=== PATIENT | female | born 1945 | race Caucasian/White ===

== ENCOUNTER 2023-09-26 23:12 | Inpatient (IN) | payer BC ==
[~2023-09-26] VITALS: Ht 172.7 cm; Wt 89.8 kg
[2023-09-26] MEDS: ACETAMINOPHEN 650 MG/SUPP.RECT RC ONE (23:30)
[2023-09-26] MEDS: IV NS 0.9% 1,000 ML BAG IV ONE (23:30)
[2023-09-26] MEDS ORDERED: ACETAMINOPHEN 650 MG/SUPP.RECT RC ONE (23:40)
[2023-09-26 23:48] LABS: BASOPHILS % (AUTO) 0.3 % (0.0-2.0); EOSINOPHILS # (AUTO) 0.1 K/uL (0.0-0.7); EOSINOPHILS % (AUTO) 0.5 % (0.0-6.0); HEMATOCRIT 34 % (33-45); HEMOGLOBIN 10.8 g/dL (11.5-14.8); LYMPHOCYTES # (AUTO) 0.4 K/uL (0.8-4.8); LYMPHOCYTES % (AUTO) 3.3 % (20.0-44.0); MEAN CORPUSCULAR HEMOGLOBIN 27 PG (26.0-33.0); MEAN CORPUSCULAR HGB CONC 32 g/dl (31.0-36.0); MEAN CORPUSCULAR VOLUME 84 fL (82-100); MONOCYTES # (AUTO) 0.8 K/uL (0.1-1.30); MONOCYTES % (AUTO) 7.4 % (2.0-12.0); NEUTROPHILS # (AUTO) 10.1 K/uL (1.8-8.9); NEUTROPHILS % (AUTO) 88.5 % (43.0-81.0); PLATELET COUNT (AUTO) 255 K/uL (150-450); RED BLOOD CELL COUNT(AUTO) 3.99 MIL/uL (4.0-5.2); RED CELL DISTRIBUTION WIDTH 16.3 % (11.5-15.0); WHITE BLOOD COUNT (AUTO) 11.5 K/uL (4.3-11.0)
[2023-09-27 00:03] LABS: PARTIAL THROMBOPLASTIN TIME 26.8 SEC (24.3-34.3); PROTHROMBIN TIME 10.6 SECS (9.2-11.1)
[2023-09-27 00:20] LABS: LACTIC ACID 2.4 mmol/L (0.4-2.0)
[2023-09-27 00:29] LABS: ALANINE AMINOTRANSFERASE 34 U/L (12-78); ALKALINE PHOSPHATASE 77 U/L (46-116); ASPARTATE AMINOTRANSFERASE 41 U/L (15-37); BILIRUBIN,DIRECT 0.1 mg/dL (0.0-0.2); BILIRUBIN,TOTAL 0.4 mg/dL (0.2-1.0); CALCIUM, SERUM 9.1 mg/dL (8.5-10.1); CARBON DIOXIDE 26 mmol/L (21-32); CHLORIDE 106 mmol/L (98-107); CREATININE 1.3 mg/dL (0.6-1.3); GLUCOSE 105 mg/dL (74-106); POTASSIUM 4.4 mmol/L (3.5-5.1); SODIUM SERUM 143 mmol/L (136-145); UREA NITROGEN, BLOOD 34 mg/dL (7-18)
[2023-09-27 00:43] LABS: APPEARANCE,URINE SLIGHTLY CLOUDY (CLEAR); BILIRUBIN,URINE NEGATIVE (NEGATIVE); BLOOD, URINE 3+ Ery/uL (NEGATIVE); COLOR,URINE YELLOW (YELLOW); KETONES,URINE NEGATIVE (NEGATIVE); LEUKOCYTE ESTERASE ,URINE 2+ (NEGATIVE); NITRITE, URINE NEGATIVE (NEGATIVE); PH,URINE 8.5 (5.0-8.0); PROTEIN,URINE NEGATIVE (NEGATIVE); UGLUCOSE NEGATIVE (NEGATIVE); UROBILINOGEN,URINE 0.2 EU/dL (0.2)
[2023-09-27 00:54] LABS: ADD URINE CULTURE YES; BACTERIA,URINE 1+ /HPF (None Seen); RBC,URINE 21-50 /HPF (0-2); SQUAMOUS EPITHELIAL CELL,UR 21-50 /HPF (None Seen)
[2023-09-27] MEDS: CEFTRIAXONE 1GM BAG (ER ONLY) 1 GM/50 ML PIGGYBACK IV ONE (01:00)
[2023-09-27] MEDS: AZITHROMYCIN 500 MG in IV D5W 250 ML IV ONE (01:00)
[2023-09-27] MEDS ORDERED: ONDANSETRON HCL/PF 4 MG/2 ML VIAL IVP PRN (01:00)
[2023-09-27] MEDS ORDERED: ALBUTEROL FS 2.5 MG/0.5 ML VIAL.NEB NEB PRN (01:00)
[2023-09-27] MEDS ORDERED: hydrALAZINE HCL IV 20 MG VIAL IV PRN (01:00)
[2023-09-27] MEDS ORDERED: ACETAMINOPHEN 325 MG TABLET PO PRN (01:00)
[2023-09-27] MEDS ORDERED: MORPHINE SULFATE INJ 2 MG/ML DISP.SYRIN IV PRN (01:00)
[2023-09-27] MEDS ORDERED: CEFTRIAXONE 1GM BAG (ER ONLY) 50 ML IV ONE (01:14)
[2023-09-27] MEDS ORDERED: AZITHROMYCIN 500 MG VIAL ONE (01:19)
[2023-09-27] MEDS: IV NS 0.9% 500 ML BAG IV ONE (01:56)
[2023-09-27] MEDS ORDERED: REMDESIVIR (CHARGED) 200 MG, *LOADING DOSE 1 EA in IV NS 0.9% 210 ML IV STA (02:28)
[2023-09-27 04:15] VITALS: BP 93/54; TEMP 97.8; O2SAT 96
[2023-09-27] MEDS: dexaMETHasone SOD PHOSPHATE 10 MG/ML VIAL IV STA (04:28)
[2023-09-27] MEDS ORDERED: IPRATROPIUM/ALBUTEROL INHALER IH SCH (06:00)
[2023-09-27] MEDS: IPRATROPIUM NEB FS 0.5 MG/2.5 ML AMPUL.NEB NEB SCH (07:35)
[2023-09-27] MEDS: ALBUTEROL FS 2.5 MG/3 ML VIAL.NEB NEB SCH (07:35)
[2023-09-27 08:00] VITALS: BP 95/60; TEMP 97.6; O2SAT 96
[2023-09-27] MEDS ORDERED: NAPR-1126 PO (08:51)
[2023-09-27] MEDS ORDERED: PANT40TA2 PO (08:51)
[2023-09-27] MEDS ORDERED: SENN8.6T19 PO (08:51)
[2023-09-27] MEDS ORDERED: RISP0.5T65 PO ×2 (08:51)
[2023-09-27] MEDS ORDERED: ACET-868 PO (08:51)
[2023-09-27] MEDS ORDERED: ALPR0.25 PO ×2 (08:51)
[2023-09-27] MEDS ORDERED: CALC-1116 PO (08:51)
[2023-09-27] MEDS ORDERED: [UNRECOGNIZED DRUG - CODE] TD (08:51)
[2023-09-27] MEDS ORDERED: GABA300C PO (08:51)
[2023-09-27] MEDS ORDERED: CLOZ100T32 PO (08:51)
[2023-09-27] MEDS ORDERED: ATOR20TA PO (08:51)
[2023-09-27] MEDS ORDERED: CHOL100043 PO (08:51)
[2023-09-27] MEDS ORDERED: MULT1TAB70 PO (08:51)
[2023-09-27] MEDS: HEPARIN SODIUM, PORCINE 5000 UNITS/1 ML VIAL SQ SCH (09:45)
[2023-09-27] MEDS ORDERED: NAPROXEN SODIUM 220 MG PO PRN (11:30)
[2023-09-27 12:00] VITALS: BP 107/95; TEMP 97.5; O2SAT 96
[2023-09-27] MEDS ORDERED: REMDESIVIR (CHARGED) 200 MG, *LOADING DOSE 1 EA in IV NS 0.9% 210 ML IV ONE (12:00)
[2023-09-27] MEDS ORDERED: NAPROXEN 500 MG TABLET PO PRN (12:30)
[2023-09-27] MEDS: MULTIVITAMINS,THERAGRAN 1 UDTAB TABLET PO SCH (12:55)
[2023-09-27] MEDS: ALPRAZOLAM 0.25 MG TABLET PO PRN (13:03)
[2023-09-27] MEDS: REMDESIVIR (CHARGED) 200 MG, *LOADING DOSE 1 EA in IV NS 0.9% 210 ML IV ONE (14:26)
[2023-09-27 16:00] VITALS: BP 111/87; TEMP 97.6; O2SAT 97
[2023-09-27] MEDS: ALPRAZOLAM 0.25 MG TABLET PO SCH (16:19)
[2023-09-27] MEDS: CALCIUM CARB 600MG /VIT D 1 EACH TABLET PO SCH (16:19)
[2023-09-27] MEDS: GABAPENTIN 300 MG CAPSULE PO SCH (16:19)
[2023-09-27 20:00] VITALS: BP 112/61; TEMP 97.7; O2SAT 96
[2023-09-27] MEDS: risperiDONE 0.25 MG TABLET PO SCH (21:31)
[2023-09-27] MEDS: ATORVASTATIN 10 MG TABLET PO SCH (21:31)
[2023-09-27] MEDS: CLOZAPINE 100 MG TABLET PO SCH (21:31)
[2023-09-27] MEDS: CEFTRIAXONE 1 G in IV D5W 50 ML IV SCH (21:34)
[2023-09-28] VITALS (7 sets, daily range): BP systolic 102–117; BP diastolic 60–69; TEMP 97.3–97.7; O2SAT 93–97
[2023-09-28 07:54] LABS: INR 0.99 (0.91-1.10); PARTIAL THROMBOPLASTIN TIME 28.9 SEC (24.3-34.3); PROTHROMBIN TIME 10.5 SECS (9.2-11.1)
[2023-09-28 07:57] LABS: BASOPHILS % (AUTO) 0.1 % (0.0-2.0); HEMATOCRIT 37 % (33-45); HEMOGLOBIN 11.7 g/dL (11.5-14.8); LYMPHOCYTES # (AUTO) 0.8 K/uL (0.8-4.8); LYMPHOCYTES % (AUTO) 8.7 % (20.0-44.0); MEAN CORPUSCULAR HEMOGLOBIN 27 PG (26.0-33.0); MEAN CORPUSCULAR HGB CONC 32 g/dl (31.0-36.0); MEAN CORPUSCULAR VOLUME 85 fL (82-100); MONOCYTES # (AUTO) 0.8 K/uL (0.1-1.30); MONOCYTES % (AUTO) 8.3 % (2.0-12.0); NEUTROPHILS # (AUTO) 7.8 K/uL (1.8-8.9); NEUTROPHILS % (AUTO) 82.9 % (43.0-81.0); PLATELET COUNT (AUTO) 237 K/uL (150-450); RED BLOOD CELL COUNT(AUTO) 4.33 MIL/uL (4.0-5.2); RED CELL DISTRIBUTION WIDTH 16.9 % (11.5-15.0); WHITE BLOOD COUNT (AUTO) 9.4 K/uL (4.3-11.0)
[2023-09-28 08:20] LABS: ALBUMIN 2.7 g/dL (3.4-5.0); BILIRUBIN,DIRECT 0.1 mg/dL (0.0-0.2); BILIRUBIN,TOTAL 0.4 mg/dL (0.2-1.0); CALCIUM, SERUM 9.1 mg/dL (8.5-10.1); CARBON DIOXIDE 23 mmol/L (21-32); CHLORIDE 110 mmol/L (98-107); CREATININE 0.9 mg/dL (0.6-1.3); GLUCOSE 95 mg/dL (74-106); POTASSIUM 4.2 mmol/L (3.5-5.1); SODIUM SERUM 143 mmol/L (136-145); TOTAL PROTEIN, SERUM 6.9 g/dL (6.4-8.2); UREA NITROGEN, BLOOD 26 mg/dL (7-18)
[2023-09-28 08:21] LABS: ALANINE AMINOTRANSFERASE 38 U/L (12-78); ALBUMIN 2.6 g/dL (3.4-5.0); ALKALINE PHOSPHATASE 72 U/L (46-116); ASPARTATE AMINOTRANSFERASE 58 U/L (15-37); BILIRUBIN,TOTAL 0.4 mg/dL (0.2-1.0); MAGNESIUM 2.5 mg/dL (1.8-2.4); PHOSPHORUS 3.6 mg/dL (2.5-4.9); TOTAL PROTEIN, SERUM 6.8 g/dL (6.4-8.2)
[2023-09-28 08:35] LABS: LACTIC ACID 1.9 mmol/L (0.4-2.0)
[2023-09-28] MEDS: PANTOPRAZOLE 40 MG TABLET.DR PO SCH (09:30)
[2023-09-28] MEDS: dexaMETHasone SOD PHOSPHATE 10 MG/ML VIAL IV SCH (09:31)
[2023-09-28] MEDS: CHOLECALCIFEROL 1,000 UNIT TABLET (VIT D3) PO SCH (09:31)
[2023-09-28] MEDS: risperiDONE 0.25 MG TABLET PO SCH (09:31)
[2023-09-28] MEDS: EMSAM TP SCH (09:48)
[2023-09-28] MEDS ORDERED: REMDESIVIR (CHARGED) 100 MG in IV NS 0.9% 80 ML IV SCH (12:00)
[2023-09-28] MEDS: REMDESIVIR (CHARGED) 100 MG in IV NS 0.9% 230 ML IV SCH (12:47)
[2023-09-28] MEDS: SENNOSIDES 8.6 MG TABLET PO PRN (18:15)
[2023-09-29] VITALS (7 sets, daily range): BP systolic 112–129; BP diastolic 71–90; TEMP 97.2–98; O2SAT 93–98
[2023-09-29] MEDS: ACETAMINOPHEN 325 MG TABLET PO PRN (05:28)
[2023-09-29 08:10] LABS: BASOPHILS % (AUTO) 0.1 % (0.0-2.0); HEMATOCRIT 38 % (33-45); HEMOGLOBIN 12.1 g/dL (11.5-14.8); LYMPHOCYTES # (AUTO) 1.3 K/uL (0.8-4.8); LYMPHOCYTES % (AUTO) 10.9 % (20.0-44.0); MEAN CORPUSCULAR HEMOGLOBIN 27 PG (26.0-33.0); MEAN CORPUSCULAR HGB CONC 32 g/dl (31.0-36.0); MEAN CORPUSCULAR VOLUME 84 fL (82-100); MONOCYTES # (AUTO) 0.9 K/uL (0.1-1.30); MONOCYTES % (AUTO) 7.4 % (2.0-12.0); NEUTROPHILS # (AUTO) 9.4 K/uL (1.8-8.9); NEUTROPHILS % (AUTO) 81.6 % (43.0-81.0); PLATELET COUNT (AUTO) 259 K/uL (150-450); RED BLOOD CELL COUNT(AUTO) 4.53 MIL/uL (4.0-5.2); RED CELL DISTRIBUTION WIDTH 16.6 % (11.5-15.0); WHITE BLOOD COUNT (AUTO) 11.6 K/uL (4.3-11.0)
[2023-09-29 08:18] LABS: INR 0.97 (0.91-1.10); PARTIAL THROMBOPLASTIN TIME 34.8 SEC (24.3-34.3); PROTHROMBIN TIME 10.3 SECS (9.2-11.1)
[2023-09-29] MEDS: SELEGILINE 6 MG/24 HR TP SCH (09:43)
[2023-09-29 10:33] LABS: ALANINE AMINOTRANSFERASE 36 U/L (12-78); ALBUMIN 2.7 g/dL (3.4-5.0); ALKALINE PHOSPHATASE 75 U/L (46-116); ASPARTATE AMINOTRANSFERASE 50 U/L (15-37); BILIRUBIN,DIRECT 0.1 mg/dL (0.0-0.2); BILIRUBIN,TOTAL 0.3 mg/dL (0.2-1.0); CALCIUM, SERUM 9.2 mg/dL (8.5-10.1); CARBON DIOXIDE 26 mmol/L (21-32); CHLORIDE 108 mmol/L (98-107); CREATININE 0.9 mg/dL (0.6-1.3); GLUCOSE 93 mg/dL (74-106); PHOSPHORUS 3.6 mg/dL (2.5-4.9); POTASSIUM 4.1 mmol/L (3.5-5.1); SODIUM SERUM 143 mmol/L (136-145); UREA NITROGEN, BLOOD 26 mg/dL (7-18)
[2023-09-29] MEDS: MAGNESIUM HYDROXIDE 30 ML UDC PO PRN (12:04)
[2023-09-29] MEDS: REMDESIVIR (CHARGED) 100 MG in IV NS 0.9% 80 ML IV SCH (12:04)
[2023-09-29] MEDS: PHENAZOPYRIDINE HCL 200 MG TABLET PO PRN (16:55)
[2023-09-30] VITALS: BP 122/74; TEMP 97.2; O2SAT 99
[2023-09-30 04:00] VITALS: BP 115/72; TEMP 97.7; O2SAT 99
[2023-09-30 07:44] LABS: BASOPHILS % (AUTO) 0.1 % (0.0-2.0); HEMATOCRIT 38 % (33-45); HEMOGLOBIN 12.4 g/dL (11.5-14.8); LYMPHOCYTES # (AUTO) 1.4 K/uL (0.8-4.8); LYMPHOCYTES % (AUTO) 10.3 % (20.0-44.0); MEAN CORPUSCULAR HEMOGLOBIN 27 PG (26.0-33.0); MEAN CORPUSCULAR HGB CONC 33 g/dl (31.0-36.0); MEAN CORPUSCULAR VOLUME 83 fL (82-100); MONOCYTES # (AUTO) 1.3 K/uL (0.1-1.30); MONOCYTES % (AUTO) 9.1 % (2.0-12.0); NEUTROPHILS # (AUTO) 11.1 K/uL (1.8-8.9); NEUTROPHILS % (AUTO) 80.5 % (43.0-81.0); PLATELET COUNT (AUTO) 274 K/uL (150-450); RED BLOOD CELL COUNT(AUTO) 4.57 MIL/uL (4.0-5.2); RED CELL DISTRIBUTION WIDTH 15.8 % (11.5-15.0); WHITE BLOOD COUNT (AUTO) 13.8 K/uL (4.3-11.0)
[2023-09-30 07:51] LABS: INR 0.99 (0.91-1.10); PARTIAL THROMBOPLASTIN TIME 36.1 SEC (24.3-34.3); PROTHROMBIN TIME 10.5 SECS (9.2-11.1)
[2023-09-30 08:00] VITALS: BP 117/89; TEMP 97.5; O2SAT 97
[2023-09-30 08:20] LABS: ALANINE AMINOTRANSFERASE 31 U/L (12-78); ALBUMIN 2.6 g/dL (3.4-5.0); ALKALINE PHOSPHATASE 73 U/L (46-116); ASPARTATE AMINOTRANSFERASE 33 U/L (15-37); BILIRUBIN,DIRECT 0.1 mg/dL (0.0-0.2); BILIRUBIN,TOTAL 0.3 mg/dL (0.2-1.0); CALCIUM, SERUM 9.6 mg/dL (8.5-10.1); CARBON DIOXIDE 26 mmol/L (21-32); CHLORIDE 107 mmol/L (98-107); GLUCOSE 90 mg/dL (74-106); POTASSIUM 4.4 mmol/L (3.5-5.1); SODIUM SERUM 144 mmol/L (136-145); TOTAL PROTEIN, SERUM 6.9 g/dL (6.4-8.2); UREA NITROGEN, BLOOD 34 mg/dL (7-18)
[2023-09-30] MEDS ORDERED: IPRATROPIUM BROMIDE 14 GM INHALER (or 12.9 GM) IH PRN (09:00)
[2023-09-30 11:01] LABS: ABG OXYGEN SATURATION 87.9 % (92.0-98.5); ABG PCO2 36.1 mmHg (35.0-45.0); ABG PH 7.452 (7.350-7.450); ABG PO2 54.3 mmHg (75.0-100.0); ABG TOTAL HEMOGLOBIN 13.3 G/dL (12.0-16.0); AaDO2 52.2 mmHg; COHb 0.6 % (0.5-1.5); MetHb 0.3 % (0.0-1.5); O2Hb 87.1 % (94.0-97.0); SITE, ABG Right Radial; VENT MODE, BG ROOM AIR
[2023-09-30 12:00] VITALS: BP 108/71; TEMP 97.5; O2SAT 97
[2023-09-30 16:00] VITALS: BP 101/69; TEMP 96.9; O2SAT 98
[2023-09-30 20:00] VITALS: BP 116/72; TEMP 97.5; O2SAT 98
[2023-10-01] VITALS (7 sets, daily range): BP systolic 112–150; BP diastolic 63–115; TEMP 96.8–97.8; O2SAT 94–98
[2023-10-01 07:49] LABS: BASOPHILS % (AUTO) 0.1 % (0.0-2.0); HEMATOCRIT 39 % (33-45); HEMOGLOBIN 12.2 g/dL (11.5-14.8); LYMPHOCYTES # (AUTO) 1.6 K/uL (0.8-4.8); LYMPHOCYTES % (AUTO) 13.4 % (20.0-44.0); MEAN CORPUSCULAR HEMOGLOBIN 27 PG (26.0-33.0); MEAN CORPUSCULAR HGB CONC 32 g/dl (31.0-36.0); MEAN CORPUSCULAR VOLUME 85 fL (82-100); MONOCYTES # (AUTO) 1.2 K/uL (0.1-1.30); MONOCYTES % (AUTO) 9.7 % (2.0-12.0); NEUTROPHILS # (AUTO) 9.3 K/uL (1.8-8.9); NEUTROPHILS % (AUTO) 76.8 % (43.0-81.0); PLATELET COUNT (AUTO) 246 K/uL (150-450); RED BLOOD CELL COUNT(AUTO) 4.55 MIL/uL (4.0-5.2); RED CELL DISTRIBUTION WIDTH 16.4 % (11.5-15.0); WHITE BLOOD COUNT (AUTO) 12.1 K/uL (4.3-11.0)
[2023-10-01 08:07] LABS: ALANINE AMINOTRANSFERASE 23 U/L (12-78); ALBUMIN 2.3 g/dL (3.4-5.0); ALKALINE PHOSPHATASE 69 U/L (46-116); ASPARTATE AMINOTRANSFERASE 23 U/L (15-37); BILIRUBIN,DIRECT 0.1 mg/dL (0.0-0.2); BILIRUBIN,TOTAL 0.3 mg/dL (0.2-1.0); CALCIUM, SERUM 9.2 mg/dL (8.5-10.1); CARBON DIOXIDE 24 mmol/L (21-32); CHLORIDE 110 mmol/L (98-107); CREATININE 0.9 mg/dL (0.6-1.3); GLUCOSE 104 mg/dL (74-106); POTASSIUM 4.3 mmol/L (3.5-5.1); SODIUM SERUM 144 mmol/L (136-145); TOTAL PROTEIN, SERUM 6.5 g/dL (6.4-8.2); UREA NITROGEN, BLOOD 39 mg/dL (7-18)
[2023-10-01 08:16] LABS: INR 0.99 (0.91-1.10); PARTIAL THROMBOPLASTIN TIME 26.6 SEC (24.3-34.3); PROTHROMBIN TIME 10.5 SECS (9.2-11.1)
[2023-10-02] VITALS: BP 130/79; TEMP 97; O2SAT 98
[2023-10-02 04:00] VITALS: BP 137/89; TEMP 97.3; O2SAT 94
[2023-10-02 07:12] LABS: BASOPHILS % (AUTO) 0.1 % (0.0-2.0); EOSINOPHILS % (AUTO) 0.1 % (0.0-6.0); HEMATOCRIT 41 % (33-45); HEMOGLOBIN 13.4 g/dL (11.5-14.8); LYMPHOCYTES # (AUTO) 1.9 K/uL (0.8-4.8); LYMPHOCYTES % (AUTO) 14.1 % (20.0-44.0); MEAN CORPUSCULAR HEMOGLOBIN 27 PG (26.0-33.0); MEAN CORPUSCULAR HGB CONC 32 g/dl (31.0-36.0); MEAN CORPUSCULAR VOLUME 84 fL (82-100); MONOCYTES # (AUTO) 1.1 K/uL (0.1-1.30); MONOCYTES % (AUTO) 8.4 % (2.0-12.0); NEUTROPHILS # (AUTO) 10.5 K/uL (1.8-8.9); NEUTROPHILS % (AUTO) 77.3 % (43.0-81.0); PLATELET COUNT (AUTO) 252 K/uL (150-450); RED CELL DISTRIBUTION WIDTH 16.7 % (11.5-15.0); WHITE BLOOD COUNT (AUTO) 13.6 K/uL (4.3-11.0)
[2023-10-02 07:18] LABS: INR 1.01 (0.91-1.10); PARTIAL THROMBOPLASTIN TIME 30.7 SEC (24.3-34.3); PROTHROMBIN TIME 10.7 SECS (9.2-11.1)
[2023-10-02 07:36] LABS: ALANINE AMINOTRANSFERASE 29 U/L (12-78); ALBUMIN 2.5 g/dL (3.4-5.0); ALKALINE PHOSPHATASE 73 U/L (46-116); ASPARTATE AMINOTRANSFERASE 20 U/L (15-37); BILIRUBIN,DIRECT 0.1 mg/dL (0.0-0.2); BILIRUBIN,TOTAL 0.3 mg/dL (0.2-1.0); CALCIUM, SERUM 9.7 mg/dL (8.5-10.1); CARBON DIOXIDE 24 mmol/L (21-32); CHLORIDE 108 mmol/L (98-107); GLUCOSE 100 mg/dL (74-106); POTASSIUM 4.3 mmol/L (3.5-5.1); SODIUM SERUM 145 mmol/L (136-145); TOTAL PROTEIN, SERUM 6.9 g/dL (6.4-8.2); UREA NITROGEN, BLOOD 34 mg/dL (7-18)
[2023-10-02 08:00] VITALS: BP 126/83; TEMP 98.2; O2SAT 97
[2023-10-02 12:00] VITALS: BP 123/70; TEMP 97.7; O2SAT 98
[2023-10-02 14:37] VITALS: O2SAT 93
[2023-10-02 16:00] VITALS: BP 109/89; TEMP 96.7; O2SAT 92
== END 2023-10-02 18:19 | disposition home health service (06) | DRG 177 ==
LOC: ER 23:23 → TELE 09-27 01:25 → TELE1 09-27 03:11
PROVIDERS: ADMIT Student in an Organized Health Care Education/Training Program; ATTEND Nurse Practitioner Acute Care
PROC: XW033E5 Introduction of Remdesivir Anti-infective into Peripheral Vein, Percutaneous Approach, New Technology Group 5 (ICD-10-PCS; principal; 2023-09-27)
DX: U07.1 COVID-19 (principal); J12.82 Pneumonia due to coronavirus disease 2019; J15.9 Unspecified bacterial pneumonia; J96.01 Acute respiratory failure with hypoxia; N39.0 Urinary tract infection, site not specified; E44.0 Moderate protein-calorie malnutrition; E87.20 Acidosis, unspecified; D64.9 Anemia, unspecified; E66.9 Obesity, unspecified; E78.5 Hyperlipidemia, unspecified; E86.0 Dehydration; F32.A Depression, unspecified; Z78.9 Other specified health status; G47.33 Obstructive sleep apnea (adult) (pediatric); Z68.30 Body mass index [BMI] 30.0-30.9, adult; R74.01 Elevation of levels of liver transaminase levels; G20.A1 Parkinson's disease without dyskinesia, without mention of fluctuations; B96.89 Other specified bacterial agents as the cause of diseases classified elsewhere
CPT/HCPCS: 36415; 36600; 70450-TC; 71045-TC; 71250-TC; 80048-TC; 80053-TC; 80076-TC; 81001; 82728-TC; 82803-TC; 82962-TC; 83605-TC; 83735-TC; 83880; 84100-TC; 84484-TC; 85025-TC; 85378-TC; 85610-TC; 85730-TC; 86140-TC; 87040-TC; 87081-TC; 87086-TC; 93307-TC; 93970-TC; 94761-TC; 94762-TC; 94799-TC; 97110-TC; 97530-TC; 97535-TC; A4216; A4223; G0378; J0456; J0696; J1100; J1644; J2048; J3490; J7030; J7040; J7050; J7060

== ENCOUNTER 2023-10-03 09:45 | Inpatient (IN) | payer BC ==
[~2023-10-03] VITALS: Ht 172.7 cm; Wt 89.8 kg
[~2023-10-03 09:45] MED LIST: ACET-868 PO; ALPR0.25 PO; ATOR20TA PO; CALC-1116 PO; CHOL100043 PO; CLOZ100T32 PO; GABA300C PO; MULT1TAB70 PO; NAPR-1126 PO; PANT40TA2 PO; RISP0.5T65 PO; SENN8.6T19 PO; [UNRECOGNIZED DRUG - CODE] TD
[2023-10-03] MEDS: IV NS 0.9% 500 ML BAG IV ONE (10:15)
[2023-10-03 10:22] LABS: BASOPHILS % (AUTO) 0.2 % (0.0-2.0); EOSINOPHILS % (AUTO) 0.1 % (0.0-6.0); HEMATOCRIT 41 % (33-45); HEMOGLOBIN 13.1 g/dL (11.5-14.8); LYMPHOCYTES # (AUTO) 2.8 K/uL (0.8-4.8); LYMPHOCYTES % (AUTO) 16.3 % (20.0-44.0); MEAN CORPUSCULAR HEMOGLOBIN 27 PG (26.0-33.0); MEAN CORPUSCULAR HGB CONC 32 g/dl (31.0-36.0); MEAN CORPUSCULAR VOLUME 84 fL (82-100); MONOCYTES # (AUTO) 1.8 K/uL (0.1-1.30); MONOCYTES % (AUTO) 10.2 % (2.0-12.0); NEUTROPHILS # (AUTO) 12.7 K/uL (1.8-8.9); NEUTROPHILS % (AUTO) 73.2 % (43.0-81.0); PLATELET COUNT (AUTO) 284 K/uL (150-450); RED CELL DISTRIBUTION WIDTH 16.2 % (11.5-15.0); WHITE BLOOD COUNT (AUTO) 17.4 K/uL (4.3-11.0)
[2023-10-03 10:29] LABS: CALCIUM, SERUM 9.4 mg/dL (8.5-10.1); CARBON DIOXIDE 25 mmol/L (21-32); CHLORIDE 113 mmol/L (98-107); CREATININE 1.1 mg/dL (0.6-1.3); GLUCOSE 74 mg/dL (74-106); POTASSIUM 4.5 mmol/L (3.5-5.1); SODIUM SERUM 148 mmol/L (136-145); UREA NITROGEN, BLOOD 42 mg/dL (7-18)
[2023-10-03 10:35] LABS: LACTIC ACID 1.9 mmol/L (0.4-2.0)
[2023-10-03 10:42] LABS: ALANINE AMINOTRANSFERASE 29 U/L (12-78); ALBUMIN 2.6 g/dL (3.4-5.0); ALKALINE PHOSPHATASE 69 U/L (46-116); ASPARTATE AMINOTRANSFERASE 26 U/L (15-37); BILIRUBIN,DIRECT 0.1 mg/dL (0.0-0.2); BILIRUBIN,TOTAL 0.4 mg/dL (0.2-1.0)
[2023-10-03 10:57] LABS: INR 1.01 (0.91-1.10); PARTIAL THROMBOPLASTIN TIME 27.3 SEC (24.3-34.3); PROTHROMBIN TIME 10.7 SECS (9.2-11.1)
[2023-10-03] MEDS ORDERED: CEFEPIME 1 GM VIAL ONE (10:59)
[2023-10-03] MEDS: CEFEPIME 1 GM in IV D5W 50 ML IV ONE (11:00)
[2023-10-03] MEDS ORDERED: VANCOMYCIN 1 GM /D5W 250 ML PB IV ONE (11:08)
[2023-10-03] MEDS: VANCOMYCIN 1 GM in IV D5W 250 ML IV ONE ×2 (12:00→14:36)
[2023-10-03] MEDS ORDERED: ONDANSETRON HCL/PF 4 MG/2 ML VIAL IVP PRN (12:30)
[2023-10-03] MEDS ORDERED: ACETAMINOPHEN 325 MG TABLET PO PRN (12:30)
[2023-10-03] MEDS ORDERED: SENNOSIDES 8.6 MG TABLET PO PRN (13:00)
[2023-10-03] MEDS ORDERED: NAPROXEN 250 MG TABLET PO PRN (13:00)
[2023-10-03] MEDS ORDERED: ALPRAZOLAM 0.25 MG TABLET PO PRN (13:00)
[2023-10-03] MEDS: risperiDONE 0.25 MG TABLET PO SCH (14:37)
[2023-10-03 16:00] VITALS: BP 133/79; TEMP 97.7; O2SAT 97
[2023-10-03] MEDS: GABAPENTIN 300 MG CAPSULE PO SCH (16:25)
[2023-10-03] MEDS: ALPRAZOLAM 0.25 MG TABLET PO SCH (16:26)
[2023-10-03] MEDS: IV NS 0.9% 1,000 ML IV PRN (18:34)
[2023-10-03 20:00] VITALS: BP 106/57; TEMP 97.9; O2SAT 95
[2023-10-03] MEDS: CLOZAPINE 100 MG TABLET PO SCH (21:51)
[2023-10-03] MEDS: ATORVASTATIN 10 MG TABLET PO SCH (21:51)
[2023-10-03] MEDS: risperiDONE 1 MG TABLET PO SCH (21:52)
[2023-10-03] MEDS: ENOXAPARIN SODIUM 40 MG/0.4 ML DISP.SYRIN SQ SCH (21:53)
[2023-10-03] MEDS: CEFEPIME 2 GM in IV D5W 100 ML IV SCH (21:53)
[2023-10-04] VITALS: BP 95/72; TEMP 97.2; O2SAT 95
[2023-10-04 04:00] VITALS: BP 106/61; TEMP 97.5; O2SAT 95
[2023-10-04 08:00] VITALS: BP 98/41; TEMP 97.5; O2SAT 93
[2023-10-04] MEDS: MULTIVIT W/MINERALS 1 TAB TABLET PO SCH (08:14)
[2023-10-04] MEDS: CHOLECALCIFEROL 1,000 UNIT TABLET (VIT D3) PO SCH (08:14)
[2023-10-04] MEDS: CALCIUM CARB 600MG /VIT D 1 EACH TABLET PO SCH (08:14)
[2023-10-04] MEDS: PANTOPRAZOLE 40 MG TABLET.DR PO SCH (08:14)
[2023-10-04] MEDS: SELEGILINE TP SCH (08:17)
[2023-10-04 08:40] LABS: BASOPHILS % (AUTO) 0.1 % (0.0-2.0); EOSINOPHILS # (AUTO) 0.2 K/uL (0.0-0.7); EOSINOPHILS % (AUTO) 1.2 % (0.0-6.0); HEMATOCRIT 40 % (33-45); HEMOGLOBIN 12.6 g/dL (11.5-14.8); LYMPHOCYTES # (AUTO) 3.6 K/uL (0.8-4.8); LYMPHOCYTES % (AUTO) 24.2 % (20.0-44.0); MEAN CORPUSCULAR HEMOGLOBIN 27 PG (26.0-33.0); MEAN CORPUSCULAR HGB CONC 32 g/dl (31.0-36.0); MEAN CORPUSCULAR VOLUME 85 fL (82-100); MONOCYTES # (AUTO) 1.2 K/uL (0.1-1.30); MONOCYTES % (AUTO) 7.9 % (2.0-12.0); NEUTROPHILS # (AUTO) 9.9 K/uL (1.8-8.9); NEUTROPHILS % (AUTO) 66.6 % (43.0-81.0); PLATELET COUNT (AUTO) 241 K/uL (150-450); RED BLOOD CELL COUNT(AUTO) 4.68 MIL/uL (4.0-5.2); RED CELL DISTRIBUTION WIDTH 16.7 % (11.5-15.0); WHITE BLOOD COUNT (AUTO) 14.9 K/uL (4.3-11.0)
[2023-10-04 08:51] LABS: CALCIUM, SERUM 8.5 mg/dL (8.5-10.1); CARBON DIOXIDE 24 mmol/L (21-32); CHLORIDE 110 mmol/L (98-107); GLUCOSE 79 mg/dL (74-106); MAGNESIUM 1.9 mg/dL (1.8-2.4); PHOSPHORUS 3.2 mg/dL (2.5-4.9); POTASSIUM 3.7 mmol/L (3.5-5.1); SODIUM SERUM 144 mmol/L (136-145); UREA NITROGEN, BLOOD 34 mg/dL (7-18)
[2023-10-04 12:00] VITALS: BP 97/32; TEMP 97.7; O2SAT 93
[2023-10-04] MEDS: VANCOMYCIN 1.5 GM in IV D5W 500 ML IV SCH (12:27)
[2023-10-04 16:00] VITALS: BP 101/74; TEMP 97.5; O2SAT 92
[2023-10-04 17:55] LABS: APPEARANCE,URINE CLOUDY (CLEAR); BILIRUBIN,URINE NEGATIVE (NEGATIVE); BLOOD, URINE 3+ Ery/uL (NEGATIVE); COLOR,URINE YELLOW (YELLOW); KETONES,URINE NEGATIVE (NEGATIVE); LEUKOCYTE ESTERASE ,URINE 3+ (NEGATIVE); NITRITE, URINE NEGATIVE (NEGATIVE); PROTEIN,URINE NEGATIVE (NEGATIVE); UGLUCOSE NEGATIVE (NEGATIVE); UROBILINOGEN,URINE 0.2 EU/dL (0.2)
[2023-10-04 17:57] LABS: ADD URINE CULTURE YES; BACTERIA,URINE 2+ /HPF (None Seen); RBC,URINE 51-80 /HPF (0-2); WBC,URINE 51-80 /HPF (0-3)
[2023-10-04 20:00] VITALS: BP 98/59; TEMP 98.4; O2SAT 98
[2023-10-05] VITALS: BP 105/65; TEMP 98; O2SAT 97
[2023-10-05 04:00] VITALS: BP 101/45; TEMP 97; O2SAT 96
[2023-10-05 07:03] LABS: BASOPHILS % (AUTO) 0.2 % (0.0-2.0); EOSINOPHILS # (AUTO) 0.3 K/uL (0.0-0.7); HEMATOCRIT 38 % (33-45); HEMOGLOBIN 12.2 g/dL (11.5-14.8); LYMPHOCYTES # (AUTO) 3.2 K/uL (0.8-4.8); LYMPHOCYTES % (AUTO) 24.4 % (20.0-44.0); MEAN CORPUSCULAR HEMOGLOBIN 27 PG (26.0-33.0); MEAN CORPUSCULAR HGB CONC 32 g/dl (31.0-36.0); MEAN CORPUSCULAR VOLUME 84 fL (82-100); MONOCYTES # (AUTO) 1.1 K/uL (0.1-1.30); MONOCYTES % (AUTO) 8.3 % (2.0-12.0); NEUTROPHILS # (AUTO) 8.5 K/uL (1.8-8.9); NEUTROPHILS % (AUTO) 65.1 % (43.0-81.0); PLATELET COUNT (AUTO) 234 K/uL (150-450); RED BLOOD CELL COUNT(AUTO) 4.54 MIL/uL (4.0-5.2); RED CELL DISTRIBUTION WIDTH 16.8 % (11.5-15.0)
[2023-10-05 07:14] LABS: CALCIUM, SERUM 8.6 mg/dL (8.5-10.1); CARBON DIOXIDE 25 mmol/L (21-32); CHLORIDE 110 mmol/L (98-107); CREATININE 1.2 mg/dL (0.6-1.3); GLUCOSE 89 mg/dL (74-106); MAGNESIUM 1.9 mg/dL (1.8-2.4); PHOSPHORUS 3.3 mg/dL (2.5-4.9); POTASSIUM 3.7 mmol/L (3.5-5.1); SODIUM SERUM 143 mmol/L (136-145); UREA NITROGEN, BLOOD 30 mg/dL (7-18)
[2023-10-05 08:00] VITALS: BP 120/63; TEMP 97.9; O2SAT 98
[2023-10-05 12:00] VITALS: BP 131/70; TEMP 97.5; O2SAT 98
[2023-10-05 12:57] LABS: HIV-1 p24 ANTIGEN NON REACTIVE (NONREACTIVE); HIV-1/2 ANTIBODY NON REACTIVE (NONREACTIVE)
[2023-10-05 16:00] VITALS: BP 99/52; TEMP 98.1; O2SAT 95
[2023-10-05 20:00] VITALS: BP 92/70; TEMP 97.7; O2SAT 100
[2023-10-06] VITALS (7 sets, daily range): BP systolic 100–113; BP diastolic 52–64; TEMP 97.5–98.1; O2SAT 97–100
[2023-10-06 07:41] LABS: BASOPHILS % (AUTO) 0.2 % (0.0-2.0); EOSINOPHILS # (AUTO) 0.3 K/uL (0.0-0.7); HEMATOCRIT 36 % (33-45); HEMOGLOBIN 11.4 g/dL (11.5-14.8); LYMPHOCYTES # (AUTO) 2.3 K/uL (0.8-4.8); LYMPHOCYTES % (AUTO) 16.2 % (20.0-44.0); MEAN CORPUSCULAR HEMOGLOBIN 27 PG (26.0-33.0); MEAN CORPUSCULAR HGB CONC 32 g/dl (31.0-36.0); MEAN CORPUSCULAR VOLUME 85 fL (82-100); MONOCYTES # (AUTO) 1.1 K/uL (0.1-1.30); MONOCYTES % (AUTO) 7.9 % (2.0-12.0); NEUTROPHILS # (AUTO) 10.3 K/uL (1.8-8.9); NEUTROPHILS % (AUTO) 73.7 % (43.0-81.0); PLATELET COUNT (AUTO) 213 K/uL (150-450); RED BLOOD CELL COUNT(AUTO) 4.22 MIL/uL (4.0-5.2); RED CELL DISTRIBUTION WIDTH 16.6 % (11.5-15.0)
[2023-10-06 08:09] LABS: CALCIUM, SERUM 8.9 mg/dL (8.5-10.1); CARBON DIOXIDE 25 mmol/L (21-32); CHLORIDE 111 mmol/L (98-107); CREATININE 0.9 mg/dL (0.6-1.3); GLUCOSE 93 mg/dL (74-106); MAGNESIUM 2.1 mg/dL (1.8-2.4); PHOSPHORUS 2.6 mg/dL (2.5-4.9); POTASSIUM 3.9 mmol/L (3.5-5.1); SODIUM SERUM 145 mmol/L (136-145); UREA NITROGEN, BLOOD 19 mg/dL (7-18)
[2023-10-07] VITALS: BP 106/62; TEMP 97.5; O2SAT 99
[2023-10-07 04:00] VITALS: BP 106/60; TEMP 97.5; O2SAT 99
[2023-10-07 07:36] LABS: CALCIUM, SERUM 7.8 mg/dL (8.5-10.1); CARBON DIOXIDE 24 mmol/L (21-32); CHLORIDE 112 mmol/L (98-107); CREATININE 0.9 mg/dL (0.6-1.3); GLUCOSE 93 mg/dL (74-106); POTASSIUM 3.8 mmol/L (3.5-5.1); SODIUM SERUM 144 mmol/L (136-145); UREA NITROGEN, BLOOD 19 mg/dL (7-18)
[2023-10-07 08:00] VITALS: BP 91/55; TEMP 97.5; O2SAT 99
[2023-10-07 11:36] LABS: BASOPHILS # (AUTO) 0.1 K/uL (0.0-0.2); BASOPHILS % (AUTO) 0.4 % (0.0-2.0); EOSINOPHILS # (AUTO) 0.3 K/uL (0.0-0.7); EOSINOPHILS % (AUTO) 1.9 % (0.0-6.0); HEMATOCRIT 36 % (33-45); HEMOGLOBIN 11.1 g/dL (11.5-14.8); LYMPHOCYTES # (AUTO) 2.4 K/uL (0.8-4.8); LYMPHOCYTES % (AUTO) 16.9 % (20.0-44.0); MEAN CORPUSCULAR HEMOGLOBIN 27 PG (26.0-33.0); MEAN CORPUSCULAR HGB CONC 31 g/dl (31.0-36.0); MEAN CORPUSCULAR VOLUME 86 fL (82-100); MONOCYTES # (AUTO) 1.1 K/uL (0.1-1.30); MONOCYTES % (AUTO) 7.3 % (2.0-12.0); NEUTROPHILS # (AUTO) 10.6 K/uL (1.8-8.9); NEUTROPHILS % (AUTO) 73.5 % (43.0-81.0); PLATELET COUNT (AUTO) 189 K/uL (150-450); RED BLOOD CELL COUNT(AUTO) 4.18 MIL/uL (4.0-5.2); RED CELL DISTRIBUTION WIDTH 16.8 % (11.5-15.0); WHITE BLOOD COUNT (AUTO) 14.5 K/uL (4.3-11.0)
[2023-10-07 12:00] VITALS: BP 91/47; TEMP 97.5; O2SAT 99
[2023-10-07 16:00] VITALS: BP 91/72; TEMP 96.9; O2SAT 99
[2023-10-07 20:00] VITALS: BP 105/61; TEMP 98.4; O2SAT 99
[2023-10-08] VITALS: BP 104/73; TEMP 97.9; O2SAT 98
[2023-10-08 04:00] VITALS: BP 99/57; TEMP 97.9; O2SAT 100
[2023-10-08 08:00] VITALS: BP 97/57; TEMP 97.7; O2SAT 98
[2023-10-08 08:07] LABS: CALCIUM, SERUM 8.7 mg/dL (8.5-10.1); CARBON DIOXIDE 20 mmol/L (21-32); CHLORIDE 111 mmol/L (98-107); CREATININE 0.8 mg/dL (0.6-1.3); GLUCOSE 102 mg/dL (74-106); POTASSIUM 3.9 mmol/L (3.5-5.1); SODIUM SERUM 143 mmol/L (136-145); UREA NITROGEN, BLOOD 18 mg/dL (7-18)
[2023-10-08 12:10] VITALS: BP 110/50; TEMP 97.3; O2SAT 99
[2023-10-08 15:50] VITALS: BP 120/69; TEMP 97.3; O2SAT 97
== END 2023-10-08 15:50 | DRG 689 ==
LOC: ER 09:45 → TELE1 12:22
PROVIDERS: ADMIT Nurse Practitioner Acute Care; ATTEND Student in an Organized Health Care Education/Training Program
PROC: 5A09357 Assistance with Respiratory Ventilation, Less than 24 Consecutive Hours, Continuous Positive Airway Pressure (ICD-10-PCS; principal; 2023-10-04)
DX: N39.0 Urinary tract infection, site not specified (principal); J15.69 Pneumonia due to other Gram-negative bacteria; J69.0 Pneumonitis due to inhalation of food and vomit; J15.9 Unspecified bacterial pneumonia; E44.0 Moderate protein-calorie malnutrition; F02.83 Dementia in other diseases classified elsewhere, unspecified severity, with mood disturbance; E87.0 Hyperosmolality and hypernatremia; E87.20 Acidosis, unspecified; E86.0 Dehydration; D64.9 Anemia, unspecified; E66.9 Obesity, unspecified; E78.5 Hyperlipidemia, unspecified; F32.A Depression, unspecified; Z86.16 Personal history of COVID-19; Z87.01 Personal history of pneumonia (recurrent); R74.01 Elevation of levels of liver transaminase levels; I70.90 Unspecified atherosclerosis; Z68.30 Body mass index [BMI] 30.0-30.9, adult; B96.89 Other specified bacterial agents as the cause of diseases classified elsewhere; R53.1 Weakness; Z20.822 Contact with and (suspected) exposure to COVID-19; G20.A1 Parkinson's disease without dyskinesia, without mention of fluctuations
CPT/HCPCS: 36415; 71045-TC; 80048-TC; 80076-TC; 80202-TC; 81001; 83605-TC; 83735-TC; 84100-TC; 84484-TC; 85025-TC; 85730-TC; 86803; 87040-TC; 87081-TC; 87086-TC; 87806; 94760-TC; 94762-TC; 94799-TC; 97112-TC; 97530-TC; A4223; G0378; J0692; J1650; J3370; J3371; J7030; J7040; J7060

== ENCOUNTER 2024-06-24 10:11 | Inpatient (IN) | payer BC ==
[~2024-06-24] VITALS: Ht 172.7 cm; Wt 83.0 kg
[2024-06-24 10:57] LABS: BASOPHILS # (AUTO) 0.1 K/uL (0.0-0.2); BASOPHILS % (AUTO) 0.6 % (0.0-2.0); EOSINOPHILS # (AUTO) 0.3 K/uL (0.0-0.7); EOSINOPHILS % (AUTO) 2.8 % (0.0-6.0); HEMATOCRIT 42 % (33-45); HEMOGLOBIN 13.5 g/dL (11.5-14.8); LYMPHOCYTES # (AUTO) 2.2 K/uL (0.8-4.8); LYMPHOCYTES % (AUTO) 22.7 % (20.0-44.0); MEAN CORPUSCULAR HEMOGLOBIN 28 PG (26.0-33.0); MEAN CORPUSCULAR HGB CONC 32 g/dl (31.0-36.0); MEAN CORPUSCULAR VOLUME 87 fL (82-100); MONOCYTES # (AUTO) 0.7 K/uL (0.1-1.30); NEUTROPHILS # (AUTO) 6.4 K/uL (1.8-8.9); NEUTROPHILS % (AUTO) 66.9 % (43.0-81.0); PLATELET COUNT (AUTO) 306 K/uL (150-450); RED BLOOD CELL COUNT(AUTO) 4.82 MIL/uL (4.0-5.2); RED CELL DISTRIBUTION WIDTH 16.5 % (11.5-15.0); WHITE BLOOD COUNT (AUTO) 9.6 K/uL (4.3-11.0)
[2024-06-24 11:13] LABS: LACTIC ACID 1.4 mmol/L (0.4-2.0)
[2024-06-24 11:17] LABS: ALANINE AMINOTRANSFERASE 27 U/L (12-78); ALBUMIN 3.6 g/dL (3.4-5.0); ALKALINE PHOSPHATASE 104 U/L (46-116); ASPARTATE AMINOTRANSFERASE 27 U/L (15-37); BILIRUBIN,DIRECT 0.1 mg/dL (0.0-0.2); BILIRUBIN,TOTAL 0.5 mg/dL (0.2-1.0); CALCIUM, SERUM 10.4 mg/dL (8.5-10.1); CARBON DIOXIDE 28 mmol/L (21-32); CHLORIDE 105 mmol/L (98-107); GLUCOSE 121 mg/dL (74-106); SODIUM SERUM 141 mmol/L (136-145); TOTAL PROTEIN, SERUM 8.1 g/dL (6.4-8.2); UREA NITROGEN, BLOOD 28 mg/dL (7-18)
[2024-06-24 11:32] LABS: INR 0.98 (0.91-1.10); PARTIAL THROMBOPLASTIN TIME 28.1 SEC (24.3-34.3); PROTHROMBIN TIME 10.4 SECS (9.2-11.1)
[2024-06-24] MEDS: IV NS 0.9% 1,000 ML BAG IV ONE (12:08)
[2024-06-24 12:16] LABS: APPEARANCE,URINE SLIGHTLY CLOUDY (CLEAR); BILIRUBIN,URINE NEGATIVE (NEGATIVE); BLOOD, URINE NEGATIVE Ery/uL (NEGATIVE); COLOR,URINE YELLOW (YELLOW); KETONES,URINE NEGATIVE (NEGATIVE); LEUKOCYTE ESTERASE ,URINE TRACE (NEGATIVE); NITRITE, URINE NEGATIVE (NEGATIVE); PH,URINE 6.5 (5.0-8.0); PROTEIN,URINE TRACE mg/dl (NEGATIVE); UGLUCOSE NEGATIVE (NEGATIVE)
[2024-06-24] MEDS: CEFTRIAXONE 1GM BAG (ER ONLY) 50 ML IV ONE (12:25)
[2024-06-24] MEDS ORDERED: ONDA4TAB5 PO (12:30)
[2024-06-24] MEDS ORDERED: MULT1TAB22 PO (12:30)
[2024-06-24] MEDS ORDERED: AMIN30LI2 PO (12:30)
[2024-06-24] MEDS ORDERED: ASCO-352 PO (12:30)
[2024-06-24] MEDS ORDERED: NAPR-1196 PO (12:30)
[2024-06-24] MEDS ORDERED: PROP10TA10 PO (12:30)
[2024-06-24] MEDS ORDERED: CALC-494 PO (12:30)
[2024-06-24] MEDS ORDERED: ALPR0.5T8 PO (12:30)
[2024-06-24 14:27] LABS: ADD URINE CULTURE YES; BACTERIA,URINE 2+ /HPF (None Seen); RBC,URINE 0-2 /HPF (0-2)
[2024-06-24 16:00] VITALS: BP 130/75; TEMP 97.6; O2SAT 96
[2024-06-24] MEDS ORDERED: SENNOSIDES 8.6 MG TABLET PO PRN (16:30)
[2024-06-24] MEDS ORDERED: ALPRAZOLAM 0.25 MG TABLET PO PRN (16:30)
[2024-06-24] MEDS ORDERED: ACETAMINOPHEN 325 MG TABLET PO PRN (16:30)
[2024-06-24] MEDS ORDERED: Z GUARD REMEDY 4 OZ OINT TP PRN (16:30)
[2024-06-24] MEDS ORDERED: ONDANSETRON HCL/PF 4 MG/2 ML VIAL IVP PRN (16:30)
[2024-06-24] MEDS: GABAPENTIN 300 MG CAPSULE PO SCH (16:41)
[2024-06-24] MEDS: ENOXAPARIN SODIUM 40 MG/0.4 ML DISP.SYRIN SQ SCH (16:51)
[2024-06-24] MEDS: ALPRAZOLAM 0.5 MG TABLET PO SCH (16:52)
[2024-06-24] MEDS: IV 1/2NS 1000 ML 1,000 ML IV PRN (17:33)
[2024-06-24 20:00] VITALS: BP 140/87; TEMP 98.4; O2SAT 97
[2024-06-24] MEDS: ATORVASTATIN 40 MG TABLET PO SCH (21:41)
[2024-06-24] MEDS: CLOZAPINE 100 MG TABLET PO SCH (21:41)
[2024-06-24] MEDS: risperiDONE 1 MG TABLET PO SCH (21:43)
[2024-06-25 04:00] VITALS: BP 129/76; TEMP 97.5; O2SAT 96
[2024-06-25 06:32] LABS: BASOPHILS % (AUTO) 0.3 % (0.0-2.0); EOSINOPHILS # (AUTO) 0.2 K/uL (0.0-0.7); EOSINOPHILS % (AUTO) 2.6 % (0.0-6.0); HEMATOCRIT 38 % (33-45); HEMOGLOBIN 12.5 g/dL (11.5-14.8); LYMPHOCYTES # (AUTO) 1.8 K/uL (0.8-4.8); LYMPHOCYTES % (AUTO) 19.6 % (20.0-44.0); MEAN CORPUSCULAR HEMOGLOBIN 28 PG (26.0-33.0); MEAN CORPUSCULAR HGB CONC 33 g/dl (31.0-36.0); MEAN CORPUSCULAR VOLUME 86 fL (82-100); MONOCYTES # (AUTO) 0.6 K/uL (0.1-1.30); MONOCYTES % (AUTO) 6.9 % (2.0-12.0); NEUTROPHILS # (AUTO) 6.6 K/uL (1.8-8.9); NEUTROPHILS % (AUTO) 70.6 % (43.0-81.0); PLATELET COUNT (AUTO) 254 K/uL (150-450); RED BLOOD CELL COUNT(AUTO) 4.46 MIL/uL (4.0-5.2); WHITE BLOOD COUNT (AUTO) 9.4 K/uL (4.3-11.0)
[2024-06-25 07:01] LABS: CALCIUM, SERUM 9.2 mg/dL (8.5-10.1); CREATININE 0.8 mg/dL (0.6-1.3); MAGNESIUM 2.2 mg/dL (1.8-2.4); PHOSPHORUS 3.6 mg/dL (2.5-4.9)
[2024-06-25 07:10] LABS: THYROID STIMULATING HORMONE 1.34 uIU/mL (0.358-3.74)
[2024-06-25 08:00] VITALS: BP 97/79; TEMP 97.9; O2SAT 92
[2024-06-25] MEDS: PROPRANOLOL HCL 10 MG TABLET PO SCH (09:00)
[2024-06-25] MEDS ORDERED: [UNRECOGNIZED DRUG - CODE] TP (09:44)
[2024-06-25] MEDS: CHOLECALCIFEROL 1,000 UNIT TABLET (VIT D3) PO SCH (09:45)
[2024-06-25] MEDS: ASCORBIC ACID 500 MG TABLET PO SCH (09:45)
[2024-06-25] MEDS: MULTIVITAMINS,THERAGRAN 1 UDTAB TABLET PO SCH (09:46)
[2024-06-25] MEDS: PANTOPRAZOLE 40 MG TABLET.DR PO SCH (09:47)
[2024-06-25] MEDS: CEFTRIAXONE 1 G in IV D5W 50 ML IV SCH (13:16)
[2024-06-25] MEDS: SELEGILINE TOP SCH (13:17)
[2024-06-25 16:00] VITALS: BP 93/50; TEMP 97.3; O2SAT 95
[2024-06-25 20:00] VITALS: BP 96/77; TEMP 98.2; O2SAT 96
[2024-06-26 04:00] VITALS: BP 96/54; TEMP 97.1; O2SAT 96
[2024-06-26 06:11] LABS: CALCIUM, SERUM 8.6 mg/dL (8.5-10.1); PHOSPHORUS 3.1 mg/dL (2.5-4.9); POTASSIUM 3.7 mmol/L (3.5-5.1)
[2024-06-26 06:18] LABS: BASOPHILS # (AUTO) 0.1 K/uL (0.0-0.2); BASOPHILS % (AUTO) 0.5 % (0.0-2.0); EOSINOPHILS # (AUTO) 0.3 K/uL (0.0-0.7); EOSINOPHILS % (AUTO) 3.4 % (0.0-6.0); HEMATOCRIT 35 % (33-45); HEMOGLOBIN 11.7 g/dL (11.5-14.8); LYMPHOCYTES # (AUTO) 2.6 K/uL (0.8-4.8); LYMPHOCYTES % (AUTO) 25.5 % (20.0-44.0); MEAN CORPUSCULAR HEMOGLOBIN 29 PG (26.0-33.0); MEAN CORPUSCULAR HGB CONC 33 g/dl (31.0-36.0); MEAN CORPUSCULAR VOLUME 87 fL (82-100); MONOCYTES # (AUTO) 0.7 K/uL (0.1-1.30); MONOCYTES % (AUTO) 6.7 % (2.0-12.0); NEUTROPHILS # (AUTO) 6.4 K/uL (1.8-8.9); NEUTROPHILS % (AUTO) 63.9 % (43.0-81.0); PLATELET COUNT (AUTO) 251 K/uL (150-450); RED BLOOD CELL COUNT(AUTO) 4.08 MIL/uL (4.0-5.2); RED CELL DISTRIBUTION WIDTH 16.4 % (11.5-15.0)
[2024-06-26 08:00] VITALS: BP 107/59; TEMP 97.1; O2SAT 95
[2024-06-26 11:08] LABS: EOSINOPHILS % (MANUAL) 4 % (0-4); LYMPHOCYTES % (MANUAL) 23 % (16-48); MONOCYTES % (MANUAL) 7 % (0-11.0); NEUTROPHILS % (MANUAL) 66 (42-76)
[2024-06-26 11:10] LABS: ANISOCYTOSIS 1+; PLATELET ESTIMATE ADEQUATE
[2024-06-26 16:00] VITALS: BP 97/58; TEMP 97; O2SAT 95
[2024-06-26] MEDS ORDERED: ALPRAZOLAM 0.25 MG TABLET PO PRN (17:00)
[2024-06-26 20:00] VITALS: BP 102/58; TEMP 98.6; O2SAT 94
[2024-06-27 04:36] VITALS: BP 116/67; TEMP 97.5; O2SAT 97
[2024-06-27 08:00] VITALS: BP 116/74; TEMP 97.5; O2SAT 97
[2024-06-27 16:00] VITALS: BP 108/60; TEMP 97.3; O2SAT 96
[2024-06-27 20:49] VITALS: BP 113/93; TEMP 97.3; O2SAT 95
[2024-06-28 04:30] VITALS: BP 127/71; TEMP 97.2; O2SAT 93
[2024-06-28 08:00] VITALS: BP 120/86; TEMP 97.7; O2SAT 95
[2024-06-28 13:32] LABS: THYROID STIMULATING HORMONE 1.62 uIU/mL (0.358-3.74)
[2024-06-28 16:00] VITALS: BP 101/55; TEMP 97.7; O2SAT 96
[2024-06-28 19:37] VITALS: BP 107/56; TEMP 98.2; O2SAT 97
[2024-06-28 20:00] VITALS: BP 107/56; TEMP 98.2; O2SAT 97
[2024-06-29 04:00] VITALS: BP 114/64; TEMP 98.2; O2SAT 96
[2024-06-29 08:00] VITALS: BP 102/47; TEMP 97.7; O2SAT 94
[2024-06-29 09:10] LABS: FOLIC ACID > 20.0 ng/mL (>3.0)
[2024-06-29] MEDS ORDERED: CEFD300C3 PO (09:37)
[2024-06-29 16:00] VITALS: BP 123/70; TEMP 97.9; O2SAT 98
[2024-06-29] MEDS: ALPRAZOLAM 0.25 MG TABLET PO PRN (16:03)
[2024-07-02 12:07] LABS: VITAMIN B1 THIAMINE,WB 208.9 nmol/L (66.5-200.0)
[2024-07-03 23:06] LABS: METHYLMALONIC ACID 169 nmol/L (0-378)
== END 2024-06-29 18:30 | DRG 640 ==
LOC: ER 10:18 → MEDSG1 15:00
PROVIDERS: ADMIT Nurse Practitioner Family; ATTEND Nurse Practitioner Acute Care
DX: E86.0 Dehydration (principal); G93.41 Metabolic encephalopathy; N39.0 Urinary tract infection, site not specified; G21.19 Other drug induced secondary parkinsonism; F32.3 Major depressive disorder, single episode, severe with psychotic features; R62.7 Adult failure to thrive; T42.8X5A Adverse effect of antiparkinsonism drugs and other central muscle-tone depressants, initial encounter; Y92.129 Unspecified place in nursing home as the place of occurrence of the external cause; Z20.822 Contact with and (suspected) exposure to COVID-19; Z88.8 Allergy status to other drugs, medicaments and biological substances; Z91.018 Allergy to other foods; Z79.899 Other long term (current) drug therapy; B96.89 Other specified bacterial agents as the cause of diseases classified elsewhere; R79.89 Other specified abnormal findings of blood chemistry; M20.42 Other hammer toe(s) (acquired), left foot; M20.41 Other hammer toe(s) (acquired), right foot; S91.112A Laceration without foreign body of left great toe without damage to nail, initial encounter; S91.114A Laceration without foreign body of right lesser toe(s) without damage to nail, initial encounter; X58.XXXA Exposure to other specified factors, initial encounter; Y92.9 Unspecified place or not applicable; G31.84 Mild cognitive impairment of uncertain or unknown etiology
CPT/HCPCS: 36415; 70450-TC; 71045-TC; 80048-TC; 80076-TC; 81001; 82607-TC; 82962-TC; 83605-TC; 83735-TC; 83921; 84100-TC; 84425; 84443-TC; 84484-TC; 85025-TC; 85730-TC; 87040-TC; 87081-TC; 87086-TC; 97110-TC; 97116-TC; 97530-TC; A4223; G0378; J0696; J1650; J3490; J7030; J7060